=== PATIENT | male | born 1945 | race Caucasian/White ===

== ENCOUNTER 2018-04-26 09:39 | Inpatient (IN) | payer MEDICARE, BC ==
[~2018-04-26] VITALS: Ht 182.9 cm; Wt 101.8 kg
[~2018-04-26 09:39] MED LIST: ASPIRIN EC81 MG PO; ATORVASTATIN PO; CLONIDINE HCL0.2 MG PO; DIOVAN160 MG PO; DORZOLAMIDE-TIM10 ML OP; GLIPIZIDE PO; HALOG30 GM TP; LABETALOL HCL200 MG PO; LASIX40 MG PO; REFRESH OU; TRAVATAN Z5 ML OP; ULTRAM50 MG PO; [UNRECOGNIZED DRUG - OTHER] OU
[2018-04-26 10:32] LABS: BASOPHILS % 0.4 % (0.0-1.0); EOSINOPHILS % 0.3 % (0.0-6.0); HEMATOCRIT 36.2 % (38.2-49.6); HEMOGLOBIN 12.4 g/dL (14.0-18.0); LYMPHOCYTES # (AUTO) 1.8 (1.0-3.2); LYMPHOCYTES % 20.1 % (18.0-39.1); MEAN CORPUSCULAR HEMOGLOBIN 32.9 pg (28-32); MEAN CORPUSCULAR HGB CONC 34.3 g/dL (31-35); MONOCYTES % 11.4 % (4.4-11.3); NEUTROPHILS # (AUTO) 6.1 (2.1-6.9); NEUTROPHILS % 67.4 % (38.7-80.0); PLATELET COUNT 181 x10e3/uL (140-360); RED BLOOD COUNT 3.77 x10e6/uL (4.3-5.7); RED CELL DISTRIBUTION WIDTH 12.6 % (11.7-14.4)
--- NOTE | 2018-04-26 10:48 | Diagnostic Imaging Report ---
PROCEDURE: CHEST SINGLE (PORTABLE) COMPARISON: 06/20/2017. INDICATIONS: IRREGULAR HEART RATE FINDINGS: The lungs are well-inflated. No focal airspace consolidation, pleural effusion, or pneumothorax. Stable cardiomediastinal contour with tortuosity and atherosclerotic calcification of the thoracic aorta. Normal heart size and pulmonary vasculature for portable AP technique. No acute osseous abnormality. CONCLUSION: No acute cardiopulmonary abnormality. Dictated by: Mainor Foote M.D. on 04/26/2018 at 10:56 Electronically approved by: Mainor Foote M.D. on 04/26/2018 at 10:56
[2018-04-26 10:56] LABS: ALBUMIN/GLOBULIN RATIO 1.4 (0.8-2.0); ANION GAP 15.5 mmol/L (8-16); CALCIUM 9.7 mg/dL (8.4-10.2); CREATININE, SERUM 1.52 mg/dL (0.72-1.25); POTASSIUM 3.5 mmol/L (3.5-5.1)
[2018-04-26 11:02] LABS: CREATINE KINASE MB 2.9 ng/mL (0-5.0)
[2018-04-26 12:21] LABS: BILIRUBIN,URINE NEGATIVE (NEGATIVE); CLARITY,URINE CLEAR (CLEAR); COLOR,URINE YELLOW (YELLOW); KETONES,URINE NEGATIVE (NEGATIVE); LEUKOCYTE ESTERASE ,URINE NEGATIVE (NEGATIVE); NITRITE,URINE NEGATIVE (NEGATIVE); PROTEIN,URINE DIPSTICK NEGATIVE (NEGATIVE); URINE UROBILINOGEN 0.2 mg/dL (0.2 - 1)
[2018-04-26 12:34] LABS: EPITHELIAL CELLS,URINE RARE /LPF
[2018-04-26 17:35] VITALS: BP 130/60
[2018-04-26 20:00] VITALS: BP 160/71
[2018-04-26] MEDS ORDERED: GLIPIZIDE ER5 MG PO (20:05)
[2018-04-26] MEDS ORDERED: TRAVATAN Z5 ML OU (20:05)
[2018-04-26] MEDS ORDERED: ATORVASTATIN CA20 MG PO (20:05)
[2018-04-26] MEDS ORDERED: COSOPT EYE DROP10 ML OU (20:05)
[2018-04-26] MEDS ORDERED: DORZOLAMIDE OU SCH (21:00)
[2018-04-26] MEDS ORDERED: TIMOLOL OU SCH (21:00)
[2018-04-26 21:17] VITALS: BP 160/71
[2018-04-26] MEDS: DORZOLAMIDE/TIMOLOL/PF 1 EACH DROPERETTE OP SCH (21:17)
[2018-04-26] MEDS: CLONIDINE HCL 0.2 MG TAB PO SCH (21:17)
[2018-04-26] MEDS: ATORVASTATIN 20 MG TAB PO SCH (21:17)
[2018-04-26] MEDS: TRAVOPROST(OPTH) 2.5 ML BTL OP SCH (21:30)
[2018-04-27] VITALS (8 sets, daily range): BP systolic 112–175; BP diastolic 54–82
[2018-04-27 08:59] LABS: BASOPHILS # (AUTO) 0.1 (0.0-0.1); BASOPHILS % 0.5 % (0.0-1.0); EOSINOPHILS % 0.4 % (0.0-6.0); HEMATOCRIT 37.9 % (38.2-49.6); HEMOGLOBIN 12.9 g/dL (14.0-18.0); LYMPHOCYTES # (AUTO) 2.1 (1.0-3.2); LYMPHOCYTES % 19.2 % (18.0-39.1); MEAN CORPUSCULAR VOLUME 96.9 fL (81-99); MONOCYTES # (AUTO) 1.1 (0.2-0.8); MONOCYTES % 10.4 % (4.4-11.3); NEUTROPHILS # (AUTO) 7.6 (2.1-6.9); NEUTROPHILS % 69.2 % (38.7-80.0); PLATELET COUNT 174 x10e3/uL (140-360); RED BLOOD COUNT 3.91 x10e6/uL (4.3-5.7); RED CELL DISTRIBUTION WIDTH 12.5 % (11.7-14.4)
[2018-04-27] MEDS ORDERED: DORZOLAMIDE/TIMOLOL/PF 1 EACH DROPERETTE OP SCH (09:00)
--- NOTE | 2018-04-27 09:08 | Consultation ---
DATE OF CONSULTATION: April 27, 2018 CARDIOLOGY CONSULTATION REFERRING PHYSICIAN: Dr. Heard REASON FOR CONSULTATION: Arrhythmia. HPI: This is a pleasant, 72-year-old male that presented with dizziness and weakness. According to the medical record, he was found very confused, and he was brought in for evaluation. In the emergency room, he was found to have multiple PVCs, and he was admitted for further evaluation. He has a history of CVA in 2016, and he is a little slow to answer some questions. He denied any chest pain, any palpitations, any shortness of breath or diaphoresis. Troponin was negative. EKG showed normal sinus rhythm with frequent PVCs. PAST MEDICAL HISTORY: Hypertension, diabetes, sciatica of bilateral lower extremities, redness, CKD, hyperlipidemia, CVA and carotid disease. SURGICAL HISTORY: Appendectomy, back surgery, left knee surgery and lumbar facet arthroplasty. FAMILY HISTORY: Positive for hypertension and CAD. SOCIAL HISTORY: No smoking. No drinking. He lives alone. MEDICATIONS: He was on clonidine, atorvastatin, glipizide, labetalol, furosemide, valsartan, aspirin, and Travatan eye drops. ALLERGIES: HE IS NOT ALLERGIC TO ANY MEDICATION. REVIEW OF SYSTEMS: Negative, except those mentioned above. PHYSICAL EXAMINATION VITAL SIGNS: Temperature 98, heart rate 59, blood pressure 120/54, respirations 18, oxygen saturation 97% on room air. GENERAL: He is awake, alert and oriented times 2, but slow to respond. HEENT: Mucous membranes are moist. NECK: Supple. LUNGS: Bilateral clear to auscultation. CARDIOVASCULAR: S1 and S2 present with some PVCs. ABDOMEN: Soft. NEUROLOGIC: He is able to move all extremities. Due to the history of stroke, he is slow in responding to questions. EXTREMITIES: Redness, but no edema. LABS: Sodium 142, potassium 3.5, chloride 106, CO2 24, BUN 27, creatinine 1.52, glucose 89. White blood cells 9.06, hemoglobin 12.4, hematocrit 36.2, platelets 181. IMPRESSION 1. Arrhythmias. 2. Diabetes. 3. Hypertension. 4. Chronic kidney disease. 5. Hyperlipidemia. 6. History of cerebrovascular accident and carotid disease. ASSESSMENT AND PLAN 1. He is pending an echocardiogram to assess the LV and valve function. 2. We will go ahead and get bilateral carotid Doppler. 3. Will check magnesium, TSH and BNP. He is on beta haider. We will go ahead and continue the same. His heart rate is normal sinus rhythm with some PVCs, and he is asymptomatic. Potassium is 3.5. We will go ahead and give him a little more potassium. 4. Further cardiac workup pending clinical course. Thank you for this consultation. Dictated by Ry Saab NP Job#: [id number]
[2018-04-27] MEDS: CLONIDINE HCL 0.2 MG TAB PO SCH ×2 (09:09→20:53)
[2018-04-27] MEDS: VALSARTAN 160 MG TAB PO SCH (09:09)
[2018-04-27] MEDS: GLIPIZIDE 5 MG TAB ER PO SCH (09:09)
[2018-04-27] MEDS: ASPIRIN 81 MG ENTERIC COATED PO SCH (09:09)
[2018-04-27] MEDS: LABETALOL HCL 200 MG TAB PO SCH (09:10)
[2018-04-27] MEDS: FUROSEMIDE 40 MG TAB PO SCH (09:10)
[2018-04-27] MEDS ORDERED: POTASSIUM CHLORIDE 20MEQ/15ML UDC NG NR (09:15)
[2018-04-27 09:17] LABS: ALANINE AMINOTRANSFERASE 14 IU/L (0-55); ALBUMIN 3.8 g/dL (3.5-5.0); ALBUMIN/GLOBULIN RATIO 1.4 (0.8-2.0); ALKALINE PHOSPHATASE 78 IU/L (40-150); ANION GAP 15.2 mmol/L (8-16); BLOOD UREA NITROGEN 22 mg/dL (7-26); BUN/CREATININE RATIO 19 (6-25); CALCIUM 9.4 mg/dL (8.4-10.2); CARBON DIOXIDE 23 mmol/L (22-29); CHLORIDE 106 mmol/L (98-107); CREATININE, SERUM 1.13 mg/dL (0.72-1.25); EST GLOMERULAR FILTRATION RATE > 60 ML/MIN (60-); GLUCOSE 93 mg/dL (74-118); POTASSIUM 3.2 mmol/L (3.5-5.1); SODIUM 141 mmol/L (136-145)
[2018-04-27 09:20] LABS: MAGNESIUM 1.8 MG/DL (1.3-2.1)
[2018-04-27 09:46] LABS: THYROID STIMULATING HORMONE 0.43 uIU/mL (0.350-4.940)
[2018-04-27] MEDS: TRAMADOL HCL 50 MG TAB PO PRN (12:24)
[2018-04-27] MEDS: DORZOLAMIDE/TIMOLOL/PF 1 EACH DROPERETTE OP SCH ×2 (12:54→16:55)
[2018-04-27 18:18] LABS: BILIRUBIN,URINE NEGATIVE (NEGATIVE); CLARITY,URINE CLEAR (CLEAR); COLOR,URINE YELLOW (YELLOW); KETONES,URINE NEGATIVE (NEGATIVE); LEUKOCYTE ESTERASE ,URINE NEGATIVE (NEGATIVE); NITRITE,URINE NEGATIVE (NEGATIVE); PROTEIN,URINE DIPSTICK TRACE (NEGATIVE); URINE UROBILINOGEN 0.2 mg/dL (0.2 - 1)
[2018-04-27 18:29] LABS: BACTERIA,URINE MODERATE /HPF; EPITHELIAL CELLS,URINE MODERATE /LPF; MUCUS,URINE MODERATE (RARE)
[2018-04-27] MEDS: CEFTRIAXONE SOD 1 GM VIAL IV SCH (18:46)
[2018-04-27] MEDS: TRAVOPROST(OPTH) 2.5 ML BTL OP SCH (20:52)
[2018-04-27] MEDS: ATORVASTATIN 20 MG TAB PO SCH (20:53)
[2018-04-27] MEDS: ACETAMINOPHEN 325 MG TAB PO PRN (20:55)
[2018-04-28] VITALS (9 sets, daily range): BP systolic 105–167; BP diastolic 58–76
[2018-04-28] MEDS: ACETAMINOPHEN 325 MG TAB PO PRN ×2 (00:48→21:02)
[2018-04-28 05:53] LABS: BASOPHILS # (AUTO) 0.1 (0.0-0.1); BASOPHILS % 0.6 % (0.0-1.0); EOSINOPHILS # (AUTO) 0.1 (0.0-0.4); EOSINOPHILS % 0.6 % (0.0-6.0); HEMATOCRIT 34.5 % (38.2-49.6); HEMOGLOBIN 11.9 g/dL (14.0-18.0); LYMPHOCYTES # (AUTO) 2.4 (1.0-3.2); LYMPHOCYTES % 24.4 % (18.0-39.1); MEAN CORPUSCULAR HEMOGLOBIN 33.3 pg (28-32); MEAN CORPUSCULAR HGB CONC 34.5 g/dL (31-35); MEAN CORPUSCULAR VOLUME 96.6 fL (81-99); MONOCYTES # (AUTO) 1.4 (0.2-0.8); MONOCYTES % 13.5 % (4.4-11.3); NEUTROPHILS # (AUTO) 6.1 (2.1-6.9); NEUTROPHILS % 60.7 % (38.7-80.0); PLATELET COUNT 178 x10e3/uL (140-360); RED BLOOD COUNT 3.57 x10e6/uL (4.3-5.7); RED CELL DISTRIBUTION WIDTH 12.3 % (11.7-14.4)
[2018-04-28 06:13] LABS: ALANINE AMINOTRANSFERASE 16 IU/L (0-55); ALBUMIN 3.5 g/dL (3.5-5.0); ALBUMIN/GLOBULIN RATIO 1.3 (0.8-2.0); ALKALINE PHOSPHATASE 71 IU/L (40-150); ANION GAP 12.3 mmol/L (8-16); BLOOD UREA NITROGEN 18 mg/dL (7-26); BUN/CREATININE RATIO 17 (6-25); CALCIUM 9.6 mg/dL (8.4-10.2); CARBON DIOXIDE 27 mmol/L (22-29); CHLORIDE 106 mmol/L (98-107); CREATININE, SERUM 1.09 mg/dL (0.72-1.25); EST GLOMERULAR FILTRATION RATE > 60 ML/MIN (60-); GLUCOSE 87 mg/dL (74-118); POTASSIUM 3.3 mmol/L (3.5-5.1); SODIUM 142 mmol/L (136-145)
[2018-04-28] MEDS: GLIPIZIDE 5 MG TAB ER PO SCH (08:28)
[2018-04-28] MEDS: VALSARTAN 160 MG TAB PO SCH (08:28)
[2018-04-28] MEDS: CLONIDINE HCL 0.2 MG TAB PO SCH ×2 (08:28→21:02)
[2018-04-28] MEDS: ASPIRIN 81 MG ENTERIC COATED PO SCH (08:28)
[2018-04-28] MEDS: FUROSEMIDE 40 MG TAB PO SCH (08:29)
[2018-04-28] MEDS: LABETALOL HCL 200 MG TAB PO SCH (08:29)
[2018-04-28] MEDS: DORZOLAMIDE/TIMOLOL/PF 1 EACH DROPERETTE OP SCH ×2 (08:56→16:49)
[2018-04-28] MEDS ORDERED: POTASSIUM CHLORIDE 20 MEQ TAB CR PO NR (11:00)
[2018-04-28] MEDS: CEFTRIAXONE SOD 1 GM VIAL IV SCH (17:48)
[2018-04-28] MEDS: TRAVOPROST(OPTH) 2.5 ML BTL OP SCH (21:02)
[2018-04-28] MEDS: ATORVASTATIN 20 MG TAB PO SCH (21:02)
[2018-04-29] VITALS (7 sets, daily range): BP systolic 110–167; BP diastolic 55–88
[2018-04-29 05:10] LABS: BASOPHILS # (AUTO) 0.1 (0.0-0.1); BASOPHILS % 0.5 % (0.0-1.0); EOSINOPHILS # (AUTO) 0.1 (0.0-0.4); HEMATOCRIT 35.2 % (38.2-49.6); LYMPHOCYTES # (AUTO) 2.4 (1.0-3.2); LYMPHOCYTES % 23.1 % (18.0-39.1); MEAN CORPUSCULAR HEMOGLOBIN 32.9 pg (28-32); MEAN CORPUSCULAR HGB CONC 34.1 g/dL (31-35); MEAN CORPUSCULAR VOLUME 96.4 fL (81-99); MONOCYTES # (AUTO) 1.3 (0.2-0.8); MONOCYTES % 12.9 % (4.4-11.3); NEUTROPHILS # (AUTO) 6.4 (2.1-6.9); NEUTROPHILS % 62.2 % (38.7-80.0); PLATELET COUNT 169 x10e3/uL (140-360); RED BLOOD COUNT 3.65 x10e6/uL (4.3-5.7); RED CELL DISTRIBUTION WIDTH 12.2 % (11.7-14.4)
[2018-04-29 05:34] LABS: ALANINE AMINOTRANSFERASE 14 IU/L (0-55); ALBUMIN 3.5 g/dL (3.5-5.0); ALBUMIN/GLOBULIN RATIO 1.4 (0.8-2.0); ALKALINE PHOSPHATASE 71 IU/L (40-150); ANION GAP 7.1 mmol/L (8-16); BLOOD UREA NITROGEN 17 mg/dL (7-26); BUN/CREATININE RATIO 16 (6-25); CALCIUM 9.6 mg/dL (8.4-10.2); CARBON DIOXIDE 30 mmol/L (22-29); CHLORIDE 101 mmol/L (98-107); CREATININE, SERUM 1.04 mg/dL (0.72-1.25); EST GLOMERULAR FILTRATION RATE > 60 ML/MIN (60-); GLUCOSE 83 mg/dL (74-118); POTASSIUM 3.1 mmol/L (3.5-5.1); SODIUM 135 mmol/L (136-145)
[2018-04-29] MEDS ORDERED: POTASSIUM CHLORIDE 20 MEQ TAB CR PO STA (06:36)
[2018-04-29] MEDS: TRAMADOL HCL 50 MG TAB PO PRN (08:07)
[2018-04-29] MEDS: CLONIDINE HCL 0.2 MG TAB PO SCH ×2 (08:07→21:08)
[2018-04-29] MEDS: LABETALOL HCL 200 MG TAB PO SCH (08:07)
[2018-04-29] MEDS: FUROSEMIDE 40 MG TAB PO SCH (08:07)
[2018-04-29] MEDS: VALSARTAN 160 MG TAB PO SCH (08:07)
[2018-04-29] MEDS: ASPIRIN 81 MG ENTERIC COATED PO SCH (08:07)
[2018-04-29] MEDS: GLIPIZIDE 5 MG TAB ER PO SCH (08:07)
[2018-04-29] MEDS: DORZOLAMIDE/TIMOLOL/PF 1 EACH DROPERETTE OP SCH ×2 (09:02→16:29)
[2018-04-29] MEDS: CEFTRIAXONE SOD 1 GM VIAL IV SCH (17:08)
[2018-04-29] MEDS: TRAVOPROST(OPTH) 2.5 ML BTL OP SCH (21:07)
[2018-04-29] MEDS: ATORVASTATIN 20 MG TAB PO SCH (21:08)
[2018-04-30] VITALS (8 sets, daily range): BP systolic 104–161; BP diastolic 51–72
[2018-04-30 05:48] LABS: ALANINE AMINOTRANSFERASE 14 IU/L (0-55); ALBUMIN 3.3 g/dL (3.5-5.0); ALBUMIN/GLOBULIN RATIO 1.3 (0.8-2.0); ALKALINE PHOSPHATASE 69 IU/L (40-150); ANION GAP 9.8 mmol/L (8-16); BLOOD UREA NITROGEN 16 mg/dL (7-26); BUN/CREATININE RATIO 19 (6-25); CALCIUM 8.8 mg/dL (8.4-10.2); CARBON DIOXIDE 27 mmol/L (22-29); CHLORIDE 101 mmol/L (98-107); CREATININE, SERUM 0.86 mg/dL (0.72-1.25); EST GLOMERULAR FILTRATION RATE > 60 ML/MIN (60-); GLUCOSE 73 mg/dL (74-118); POTASSIUM 3.8 mmol/L (3.5-5.1); SODIUM 134 mmol/L (136-145)
[2018-04-30] MEDS ORDERED: IOPAMIDOL 370 MG/ML 200 ML INFUS..BTL INJ ONE (07:15)
[2018-04-30] MEDS ORDERED: SODIUM CHLORIDE 0.9% 50ML 100 ML ONE (07:15)
[2018-04-30] MEDS: GLIPIZIDE 5 MG TAB ER PO SCH (08:30)
[2018-04-30] MEDS: LABETALOL HCL 200 MG TAB PO SCH (09:19)
[2018-04-30] MEDS: DORZOLAMIDE/TIMOLOL/PF 1 EACH DROPERETTE OP SCH ×2 (09:19→17:44)
[2018-04-30] MEDS: CLONIDINE HCL 0.2 MG TAB PO SCH ×2 (09:19→20:05)
[2018-04-30] MEDS: ACETAMINOPHEN 325 MG TAB PO PRN (09:19)
[2018-04-30] MEDS: FUROSEMIDE 40 MG TAB PO SCH (09:19)
[2018-04-30] MEDS: VALSARTAN 160 MG TAB PO SCH (09:19)
[2018-04-30] MEDS: POTASSIUM CHLORIDE 20 MEQ TAB CR PO SCH (09:19)
[2018-04-30] MEDS: ASPIRIN 81 MG ENTERIC COATED PO SCH (09:19)
--- NOTE | 2018-04-30 10:01 | Diagnostic Imaging Report ---
Neck CTA History: Bilateral carotid stenosis Comparison studies:Neck CTA 01/12/2016 and cervical MRA 01/11/2016. Technique: Axial images were obtained from the thoracic inlet. Coronal and sagittal images reconstructed from the axial data. Additional multiplanar MIP and volume rendered 3-D images were obtained from the axial source data. Additional alternated stenosis calculations were performed on a separate workstation by the radiologist. Intravenous contrast: 100 cc of Omnipaque 300. If present, stenosis is calculated utilizing the NASCET method which calculates the degree of stenosis with reference to the normal lumen of the carotid artery distal to the stenosis. Findings: Aortic arch and major vessels: Scattered calcified plaque throughout the arch. Calcified plaque at the origin of the left subclavian artery, left common carotid artery, right brachiocephalic trunk and at the origin and proximal segment of the right subclavian artery without significant stenosis. Right carotid artery: Patent, no stenosis in the common carotid artery. Dense calcified plaque extends from the carotid bifurcation into the right carotid bulb with approximately 65-70 % stenosis at the right carotid bulb/ICA origin. Blooming artifact from dense calcium at the bulbs somewhat limited evaluation of true luminal diameter on both the current and prior exams. Mildly tortuous right ICA with mild stenotic plaque in the distal right ICA segment. Left carotid artery: Patent, no stenosis in the common carotid artery. Dense calcified plaque at the cervical bifurcation extends into the right carotid bulb and ICA origin where there is approximately 60-65% stenosis. Blooming artifact from dense calcium at the bulb somewhat limited evaluation of true luminal diameter on both the current and prior exam. Mildly tortuous cervical internal carotid artery without tandem stenosis. Left vertebral artery: Patent, no abnormalities. Right vertebral artery: Occluded in the V1 and proximal V2 segments with reconstituted flow at the right C4 transverse foramen. The nondominant right vertebral artery is diffusely smaller in caliber compared to the contralateral left vertebral artery. Included intracranial circulation: Calcified atherosclerosis throughout the left petrous, bilateral cavernous and bilateral paraophthalmic segments of the internal carotid arteries without significant stenosis. The bilateral M1 and proximal M2 MCA segments and A1 and proximal A2 MARCE segments are patent. Calcified atherosclerosis in the intradural V4 segments of both vertebral arteries with mild stenosis on the left. The nondominant right intradural V4 segment is poorly visualized with long segment narrowing proximally, with probable high-grade stenosis near its dural insertion and is otherwise patent distally. Basilar artery is patent and there are bilateral prominent posterior communicating arteries with persistent bilateral -type COAL HIKER origins. Cervical spine: Moderately degenerated disks from C4 to T2 with disc osteophyte complexes which indent the thecal sac and result in moderate canal stenosis from C4 to C7. Multilevel uncovertebral and facet arthrosis result in multilevel foraminal stenosis; moderate left at C2-C3 and moderate bilaterally from C4 to T1. Incidental findings: Bilateral intraocular lens replacements. Heterogeneous multinodular thyroid gland. Multiple dental caries with multifocal periodontal disease. IMPRESSION: 1. Moderate calcified atherosclerosis with plaques as described. 2. Approximate 65-70% stenosis at the right carotid bulb/ICA origin. 3. Approximately 60-65% stenosis at the left carotid bulb/ICA origin. 4. Nondominant right vertebral artery occluded at its origin and proximal V2 segments with unchanged severe long segmental narrowing in its proximal intradural V4 segment. 5. No significant changes from the previous CTA of 01/12/2016. Signed by: Dr. Mainor Carrillo M.D. on 04/30/2018 9:58 AM
[2018-04-30] MEDS: CEFTRIAXONE SOD 1 GM VIAL IV SCH (17:44)
[2018-04-30] MEDS: TRAVOPROST(OPTH) 2.5 ML BTL OP SCH (20:05)
[2018-04-30] MEDS: ATORVASTATIN 20 MG TAB PO SCH (20:05)
--- NOTE | 2018-04-30 21:07 | Consultation ---
DATE OF CONSULTATION: April 30, 2018 NEUROLOGY CONSULT NOTE HISTORY OF PRESENT ILLNESS: Mr. Thompson is a 72-year-old [id number] man with past medical history significant for hypertension, hyperlipidemia, diabetes mellitus type 2, and prior stroke with unknown residual deficits admitted to [facility] on April 26, 2018 with dizziness and weakness. Unfortunately, the patient is unable to provide his medical history. Mr. Santana Lind, who holds his durable and medical lopez of straddle bug operator, is unavailable at the time of this dictation. As stated above, Mr. Thompson presented to the Emergency Center at [facility] on April 26, 2018 via ambulance with dizziness which is further described as lightheadedness and generalized weakness. The patient was accompanied by his friend, Mr. Lind, who reported the patient had an abnormal electrocardiogram the week prior. While in route in the ambulance, and in the Emergency Center the patient was noted to have multiple premature ventricular contractions. Therefore, he was admitted to [facility] as an inpatient for further evaluation and treatment of cardiac arrhythmia. While in the hospital, the patient was noted by medical staff to be confused. A neurology consultation was requested for further evaluation. Mr. Thompson endorses confusion/memory loss. He reports having a stroke some time ago for which he underwent a prolonged hospitalization. Mr. Thompson reports there are portions of the this hospitalization he cannot recall. When asked if he has other concerns regarding memory loss or other cognitive deficits, the patient responds in the negative. Mr. Thompson lives alone in a house. He reports being independent in his activities of daily, living-bathing, grooming, dressing, and toileting. He does not report forgetting the names of family members or close friends. He does not report misplacing items. He does not report repetition of questions or stories. However, with each question asked, Mr. Thompson recommends speaking to his friends, Mr. Santana Lind, who can "answer all of these questions better than I can." As stated above, Mr. Thompson lives alone in a house. A home health provider comes to his home 5 days per week to perform chores, prepare meals, and administer the patient's medications. When asked who performs these tasks on the weekends, patient replies "I do not know." Mr. Thompson no longer drives. He reports being told 4 weeks ago to stop driving by his silk spreader due to "an eye problem." The patient's friend, Mr. Santana Lind, manages the patient's financial affairs, runs errands for him, schedules and takes him to appointments, etc. Once again, Mr. Thompson recommends speaking to Mr. Lind for answers to all of these questions. As stated above, Mr. Santana Lind carries the patient's durable and medical lopez of straddle bug operator. At present, he is not at the patient's bedside. He is not reachable by telephone. REVIEW OF SYSTEMS: Constipation, memory impairment, generalized weakness, impairment of balance and gait, dizziness which is further described as lightheadedness. Otherwise the 12 point review of systems is negative. PAST MEDICAL HISTORY: Hypertension, hyperlipidemia, diabetes mellitus type 2, prior stroke with unknown residual deficits, and bilateral carotid artery atherosclerosis. PAST SURGICAL HISTORY: Appendectomy, lumbar spine surgery, left knee surgery. PAST HOSPITALIZATIONS: Surgeries/procedures as listed. FAMILY MEDICAL HISTORY: Hypertension and coronary artery disease. SOCIAL HISTORY: Mr. Thompson is . He is retired. There is no reported current or prior tobacco, alcohol, or recreational drug use. HOME MEDICATIONS: Please see the list of home medications available in the electronic medical record. ALLERGIES: NO KNOWN DRUG ALLERGIES. No known food allergies. No known allergies to latex. No known allergies to iodine or other contrast materials. PHYSICAL EXAMINATION: VITAL SIGNS: Height 72 inches, weight 226 pounds. BMI 30.7 kg per meter squared. Blood pressure 126/63 mmHg. Pulse 58 beats per minute. Respiratory rate 19 breaths per minute. Oxygen saturation 94% on room air. GENERAL: The patient is awake and alert. Does not appear distressed. Overweight. HEENT: Normocephalic and atraumatic. Pupils appear surgical. Moist mucous membranes. NECK: Supple. No appreciable thyromegaly. No appreciable carotid bruits. CARDIOVASCULAR: S1 and S2. Regular rate and rhythm. No rubs or gallops. A low-grade systolic ejection murmur is appreciated. RESPIRATORY: Clear to auscultation bilaterally. No wheezes, rhonchi or rales. EXTREMITIES: The skin is warm and dry. No clubbing, cyanosis or edema. The posterior tibial and dorsalis pedis pulses are 1+ and symmetric. SKIN: Venous stasis ulcerations are present over the feet and distal lower extremities. NEUROLOGIC: Memory/attention: The patient is awake and alert. Oriented to person, place (hospital, city, county, state), minimally to time (year only), but not to situation. CRANIAL NERVES: Cranial nerve I: Not tested. Cranial nerves II, III, IV, : Pupils appears surgical. Extraocular movements intact. No nystagmus. Cranial nerve V: Sensation to light touch and pinprick is intact in the bilateral V1 through V3 distributions. Strength of the temporalis and masseter muscles is within normal limits. Cranial nerve VII: The face is symmetric, as are all facial movements. Strength is within normal limits. Cranial nerve VIII: Hearing is diminished to finger rub bilaterally. Cranial nerve IX and X: The soft palate elevates equally and symmetrically. Cranial nerve XI: Normal strength of the bilateral sternocleidomastoid and trapezius muscles. Cranial nerve XII: The tongue protrudes midline and moves symmetrically from side to side. STRENGTH: Bulk is diminished throughout, and strength is 5/5 in the bilateral deltoids, biceps, triceps, wrist flexors and extensors, finger flexors and extensors, intrinsic hand muscles, hip flexors, knee flexors and extensors, ankle dorsiflexion and plantar flexion, and intrinsic foot muscles except as follows. Right hip flexors 4/5, right knee flexors 4/5, right knee extensors 4+/5, right ankle dorsal flexion 4-/5, right ankle plantar flexion 4/5, and right intrinsic foot muscles 4/5. Tone is normal. DTRs: Deep tendon reflexes are 2+ at the left triceps, biceps, brachioradialis. Deep tendon reflexes are trace at the right triceps, biceps and brachial radialis. Deep tendon reflexes are absent and symmetric at the Patellas, and Achilles. Plantar responses are mute bilaterally. SENSATION: Intact to light touch and pinprick in both arms and both legs. CEREBELLAR: Cdxnnn-vcvj-jbpvat and heel-phillips movements are intact without dysmetria or other impairment. GAIT: Deferred. SPEECH: Spontaneous speech is normal without appreciable dysarthria or aphasia. Repetition is intact. INVOLUNTARY MOVEMENTS: None. PRONATOR DRIFT: None. LABORATORY DATA: Patient's most recent comprehensive metabolic panel is significant for a mildly decreased sodium level 134, a low serum glucose level is 73, mildly decreased total protein level 5.9, and mildly decreased albumin level 3.3. CBC with differential and platelets reveals a white blood cell count 10.27 with 62.2% neutrophils, 23.1% lymphocytes, 12.9% monocytes, 1.0% eosinophils, and 0.5% basophils. The hemoglobin and hematocrit are 12.0 and 35.2, respectively. The platelet count is 165,000. A urinalysis collected on April 27, 2018 reveals trace protein, moderate urine bacteria, 2 to 5 hyaline casts, and moderate mucus. A urine culture collected on April 27, 2018 grew mixed vinicio. DIAGNOSTIC STUDIES: Chest x-ray done 04/26/2018: No acute cardiopulmonary abnormality. Echocardiogram 04/26/2018: Ejection fraction 60% to 65%. Concentric left ventricular hypertrophy. Trace mitral regurgitation, and pulmonic insufficiency. Electrocardiogram 04/27/2018: Sinus rhythm at 68 beats per minute with premature ventricular contractions. Left axis deviation. Incomplete right, branch block. CTA of the neck 04/30/2018: Moderate calcified atherosclerosis with plaques as described. Approximate 65% to 70% stenosis of the right carotid bulb/ICA origin. Approximately 60% to 65% stenosis of the left carotid bulb/ICA origin. Nondominant right vertebral artery occluded at its origin and proximal V2 segments with unchanged severe long segmental narrowing in its proximal intradural V4 segment. No significant changes from the previous CTA of 01/12/2016. ASSESSMENT AND PLAN: Mr. Thompson is a 72-year-old [id number] man with multiple vascular risk factors as detailed admitted to [facility] on April 26, 2018 with dizziness which was further described as lightheadedness and generalized weakness with multiple PVCs seen on electrocardiogram and cardiac monitoring. During his hospitalization, Mr. Thompson was noted to be confused. A neurology consultation was requested for further evaluation. The patient's neurological examination is significant for disorientation to time and situation, weakness of the right lower extremity, relatively brisk reflexes of the left arm. Patient's laboratory data and other diagnostic studies have been reviewed and are documented above. In my opinion, Mr. Thompson has dementia, probably secondary to vascular disease. However, it is possible the patient has Alzheimer's disease as this is the most common cause of memory loss in the [place]. 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 Recommendations for further evaluation and treatment are as follows: 1. Vitamin B12 level, and rapid plasma reagin will be ordered as part of a dementia workup. 2. CT of the brain without contrast will be ordered to evaluate for patterns of volume loss as well as the extent of vascular disease in the brain. 3. Consider treatment with Donepezil 5 mg by mouth at bedtime daily. This medication is approved for the treatment of Alzheimer's disease. There is an anecdotal evidence of possible mild improvement in vascular dementia as well. Treatment with this medication will be discussed with the patient's medical power of straddle bug operator, .Santana Lind, when he is available. 4. Defer treatment of the remaining medical comorbidities to the primary and other services following the patient. Thank you for this consultation. I will continue to follow patient while he remains in the hospital. Time spent: 70 minutes. Job#: [id number] MTDD
--- NOTE | 2018-04-30 22:12 | Diagnostic Imaging Report ---
Examination: CT head without contrast Clinical Indication: Memory loss; dementia. Technique: Transaxial noncontrast images from the skull base through the vertex were obtained. Sagittal and coronal reformatted images were done. Dose modulation, iterative reconstruction, and/or weight based adjustment of the mA/kV was utilized to reduce the radiation dose to as low as reasonably achievable. Comparison: Head CT dated 06/20/2017. Findings: Scalp: No abnormalities. Bones: Intact. No fractures. No blastic or lytic lesions. Brain sulci: Mild generalized volume loss for patient's age which also includes the bilateral hippocampi, concerning for Alzheimer's. Ventricles: The ventricular size is out of proportion with respect to cerebral convexity sulci, concerning for a communicating type of hydrocephalus, such as normal pressure hydrocephalus. Extra-axial space: No abnormalities. Parenchyma: There are mild confluent areas of low-attenuation within subcortical and periventricular white matter, nonspecific, but could represent microvascular ischemic disease. Chronic lacunar infarcts are again demonstrated in the bilateral thalami. No masses, hemorrhage, or acute or chronic cortical based vascular insults. Suprasellar region: No abnormalities. Craniocervical junction: The foramen magnum is patent. No Chiari one malformation. Incidental findings: Atherosclerotic calcification of the cavernous and supraclinoid internal carotid arteries. Impression: 1. No acute intracranial finding when compared to prior head CT dated 06/20/2017. 2. Unchanged mild chronic microvascular ischemic change. 3. Unchanged findings as described can be related to normal pressure hydrocephalus. 4. Unchanged mild volume loss which could be related to Alzheimer's, as above. 5. Unchanged chronic lacunar infarcts in the bilateral thalami. Signed by: Dr. Shanita Hall M.D. on 04/30/2018 10:08 PM
[2018-05-01] VITALS (7 sets, daily range): BP systolic 135–172; BP diastolic 64–93
[2018-05-01] MEDS: VALSARTAN 160 MG TAB PO SCH (09:25)
[2018-05-01] MEDS: ASPIRIN 81 MG ENTERIC COATED PO SCH (09:25)
[2018-05-01] MEDS: DORZOLAMIDE/TIMOLOL/PF 1 EACH DROPERETTE OP SCH ×2 (09:25→18:00)
[2018-05-01] MEDS: CLONIDINE HCL 0.2 MG TAB PO SCH ×2 (09:25→20:45)
[2018-05-01] MEDS: FUROSEMIDE 40 MG TAB PO SCH (09:25)
[2018-05-01] MEDS: GLIPIZIDE 5 MG TAB ER PO SCH (09:25)
[2018-05-01] MEDS: POTASSIUM CHLORIDE 20 MEQ TAB CR PO SCH (09:25)
[2018-05-01] MEDS: LABETALOL HCL 200 MG TAB PO SCH (09:25)
[2018-05-01] MEDS: ACETAMINOPHEN 325 MG TAB PO PRN (11:16)
[2018-05-01] MEDS: CEFTRIAXONE SOD 1 GM VIAL IV SCH (18:00)
[2018-05-01] MEDS: TRAVOPROST(OPTH) 2.5 ML BTL OP SCH (20:35)
[2018-05-01] MEDS: ATORVASTATIN 20 MG TAB PO SCH (20:45)
[2018-05-01] MEDS ORDERED: DONEPEZIL HCL 5 MG TAB PO SCH (21:00)
[2018-05-02] VITALS: BP 170/79
[2018-05-02 04:00] VITALS: BP 152/92
[2018-05-02 06:14] LABS: BASOPHILS # (AUTO) 0.1 (0.0-0.1); BASOPHILS % 0.5 % (0.0-1.0); EOSINOPHILS # (AUTO) 0.5 (0.0-0.4); EOSINOPHILS % 4.6 % (0.0-6.0); HEMATOCRIT 34.5 % (38.2-49.6); HEMOGLOBIN 11.8 g/dL (14.0-18.0); MEAN CORPUSCULAR HEMOGLOBIN 32.6 pg (28-32); MEAN CORPUSCULAR HGB CONC 34.2 g/dL (31-35); MEAN CORPUSCULAR VOLUME 95.3 fL (81-99); MONOCYTES # (AUTO) 1.1 (0.2-0.8); MONOCYTES % 10.6 % (4.4-11.3); NEUTROPHILS # (AUTO) 6.7 (2.1-6.9); NEUTROPHILS % 64.9 % (38.7-80.0); PLATELET COUNT 187 x10e3/uL (140-360); RED BLOOD COUNT 3.62 x10e6/uL (4.3-5.7); RED CELL DISTRIBUTION WIDTH 12.4 % (11.7-14.4)
[2018-05-02 06:35] LABS: ALANINE AMINOTRANSFERASE 12 IU/L (0-55); ALBUMIN 3.4 g/dL (3.5-5.0); ALBUMIN/GLOBULIN RATIO 1.3 (0.8-2.0); ALKALINE PHOSPHATASE 71 IU/L (40-150); ANION GAP 15.1 mmol/L (8-16); BLOOD UREA NITROGEN 14 mg/dL (7-26); BUN/CREATININE RATIO 18 (6-25); CALCIUM 9.2 mg/dL (8.4-10.2); CARBON DIOXIDE 23 mmol/L (22-29); CHLORIDE 105 mmol/L (98-107); CREATININE, SERUM 0.79 mg/dL (0.72-1.25); EST GLOMERULAR FILTRATION RATE > 60 ML/MIN (60-); GLUCOSE 135 mg/dL (74-118); POTASSIUM 4.1 mmol/L (3.5-5.1); SODIUM 139 mmol/L (136-145)
[2018-05-02 07:35] VITALS: BP 163/74
[2018-05-02] MEDS: GLIPIZIDE 5 MG TAB ER PO SCH (08:39)
[2018-05-02] MEDS: VALSARTAN 160 MG TAB PO SCH (08:39)
[2018-05-02] MEDS: FUROSEMIDE 40 MG TAB PO SCH (08:39)
[2018-05-02] MEDS: CLONIDINE HCL 0.2 MG TAB PO SCH (08:39)
[2018-05-02] MEDS: ASPIRIN 81 MG ENTERIC COATED PO SCH (08:39)
[2018-05-02] MEDS: POTASSIUM CHLORIDE 20 MEQ TAB CR PO SCH (08:39)
[2018-05-02] MEDS: DORZOLAMIDE/TIMOLOL/PF 1 EACH DROPERETTE OP SCH ×2 (08:39→15:49)
[2018-05-02] MEDS: LABETALOL HCL 200 MG TAB PO SCH (08:40)
[2018-05-02 11:30] VITALS: BP 146/70
[2018-05-02] MEDS ORDERED: MAGNESIUM HYDROXIDE 30 ML UDC PO PRN (12:00)
[2018-05-02] MEDS: TRAMADOL HCL 50 MG TAB PO PRN (15:54)
[2018-05-02 16:30] VITALS: BP 124/70
--- OUTSIDE RECORDS SUMMARY | 2018-05-08 10:36 | XMS REPORT ---
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 Allergies, Adverse Reactions, Alerts This patient has no known allergies or adverse reactions. Medications This patient has no known medications. Results Test Description Test Time Test Comments Text Results Atomic Results Result Comments CT BRAIN WO 2018-04-30 22:02:00 [place] [address] Patient Name: LUIS PATTERSON MR #: [id number] : 1945 Age/Sex: 72/M Req #: [id number] Adm Physician: PEG OSHEA MD Ordered by: KAMI FLOWERS M.D. Report #: [id number] Location: MED/SURG Room/Bed: [facility] Procedure: [id number] CT/CT BRAIN WO Exam Date: 04/30/18 Exam Time: 1851 REPORT STATUS: Signed Examination: CT head without contrast Clinical Indication: Memory loss; dementia. Technique: Transaxial noncontrast images from the skull base through the vertex were obtained. Sagittal and coronal reformatted images were done. Dose modulation, iterative reconstruction, and/or weight based adjustment of the mA/kV was utilized to reduce the radiation dose to as low as reasonably achievable. Comparison: Head CT dated 06/20/2017. Findings: Scalp: No abnormalities. Bones: Intact. No fractures. No blastic or lytic lesions. Brain sulci: Mild generalized volume loss for patient's age which also includes the bilateral hippocampi, concerning for Alzheimer's. Ventricles: The ventricular size is out of proportion with respect to cerebral convexity sulci, concerning for a communicating type of hydrocephalus, such as normal pressure hydrocephalus. Extra-axial space: No abnormalities. Parenchyma: There are mild confluent areas of low-attenuation within subcortical and periventricular white matter, nonspecific, but could represent microvascular ischemic disease. Chronic lacunar infarcts are again demonstrated in the bilateral thalami. No masses, hemorrhage, or acute or chronic cortical based vascular insults. Suprasellar region: No abnormalities. Craniocervical junction: The foramen magnum is patent. No Chiari one malformation. Incidental findings: Atherosclerotic calcification of the cavernous and supraclinoid internal carotid arteries. Impression: 1. No acute intracranial finding when compared to prior head CT dated 06/20/2017. 2. Unchanged mild chronic microvascular ischemic change. 3. Unchanged findings as described can be related to normal pressure hydrocephalus. 4. Unchanged mild volume loss which could be related to Alzheimer's, as above. 5. Unchanged chronic lacunar infarcts in the bilateral thalami. Signed by: Dr. Shanita Hall M.D. on 04/30/2018 10:08 PM Dictated By: SHANITA HANSEN MD 07 Transcribed By: FARAZ on 04/30/182207 COPY TO: KAMI FLOWERS MD CTA NECK 2018-04-30 09:11:00 [place] [address] Patient Name: LUIS PATTERSON MR #: [id number] : 1945 Age/Sex: 72/M Req #: [id number] Adm Physician: PEG OSHEA MD Ordered by: PEG OSHEA MD Report #: [id number] Location: MED/SURG Room/Bed: [facility] Procedure: [id number] CT/CTA NECK Exam Date: 04/30/18 Exam Time: 0530 REPORT STATUS: Signed Neck CTA History: Bilateral carotid stenosis Comparison studies:Neck CTA 01/12/2016 and cervical MRA 01/11/2016. Technique: Axial images were obtained from the thoracic inlet. Coronal and sagittal images reconstructed from the axial data. Additional multiplanar MIP and volume rendered 3-D images were obtained from the axial source data. Additional alternated stenosis calculations were performed on a separate workstation by the radiologist. Intravenous contrast: 100 cc of Omnipaque 300. If present, stenosis is calculated utilizing the NASCET method which calculates the degree of stenosis with reference to the normal lumen of the carotid artery distal to the stenosis. Findings: Aortic arch and major vessels: Scattered calcified plaque throughout the arch. Calcified plaque at the origin of the left subclavian artery, left common carotid artery, right brachiocephalic trunk and at the origin and proximal segment of the right subclavian artery without significant stenosis. Right carotid artery: Patent, no stenosis in the common carotid artery. Dense calcified plaque extends from the carotid bifurcation into the right carotid bulb with approximately 65-70 % stenosis at the right carotid bulb/ICA origin. Blooming artifact from dense calcium at the bulbs somewhat limited evaluation of true luminal diameter on both the current and prior exams. Mildly tortuous right ICA with mild stenotic plaque in the distal right ICA segment. Left carotid artery: Patent, no stenosis in the common carotid artery. Dense calcified plaque at the cervical bifurcation extends into the right carotid bulb and ICA origin where there is approximately 60-65% stenosis. Blooming artifact from dense calcium at the bulb somewhat limited evaluation of true luminal diameter on both the current and prior exam. Mildly tortuous cervical internal carotid artery without tandem stenosis. Left vertebral artery: Patent, no abnormalities. Right vertebral artery: Occluded in the V1 and proximal V2 segments with reconstituted flow at the right C4 transverse foramen. The nondominant right vertebral artery is diffusely smaller in caliber compared to the contralateral left vertebral artery. Included intracranial circulation: Calcified atherosclerosis throughout the left petrous, bilateral cavernous and bilateral paraophthalmic segments of the internal carotid arteries without significant stenosis. The bilateral M1 and proximal M2 MCA segments and A1 and proximal A2 MARCE segments are patent. Calcified atherosclerosis in the intradural V4 segments of both vertebral arteries with mild stenosis on the left. The nondominant right intradural V4 segment is poorly visualized with long segment narrowing proximally, with probable high-grade stenosis near its dural insertion and is otherwise patent distally. Basilar artery is patent and there are bilateral prominent posterior communicating arteries with persistent bilateral -type PRECISION GRINDER origins. Cervical spine: Moderately degenerated disks from C4 to T2 with disc osteophyte complexes which indent the thecal sac and result in moderate canal stenosis from C4 to C7. Multilevel uncovertebral and facet arthrosis result in multilevel foraminal stenosis; moderate left at C2-C3 and moderate bilaterally from C4 to T1. Incidental findings: Bilateral intraocular lens re placements. Heterogeneous multinodular thyroid gland. Multiple dental caries with multifocal periodontal disease. IMPRESSION: 1. Moderate calcified atherosclerosis with plaques as described. 2. Approximate 65-70% stenosis at the right carotid bulb/ICA origin. 3. Approximately 60-65% stenosis at the left carotid bulb/ICA origin. 4. Nondominant right vertebral artery occluded at its origin and proximal V2 segments with unchanged severe long segmental narrowing in its proximal intradural V4 segment. 5. No significant changes from the previous CTA of 01/12/2016. Signed by: Dr. Ml Carrillo M.D. on 04/30/2018 9:58 AM Dictated By: ML CARRILLO MD 7 Transcribed By: FARAZ on 04/30/18957 COPY TO: PEG OSHEA MD CHEST SINGLE (PORTABLE) 2018-04-26 10:56:00 [place] [address] Patient Name: LUIS PATTERSON MR #: [id number] : 1945 Age/Sex: 72/M Req #: [id number] Adm Physician: Ordered by: ELENA KAT MD Report #: [id number] Location: ER Room/Bed: Procedure: [id number] DX/CHEST SINGLE (PORTABLE) Exam Date: 04/26/18 Exam Time: 1010 REPORT STATUS: Signed PROCEDURE: CHEST SINGLE (PORTABLE) COMPARISON: 06/20/2017. INDICATIONS: IRREGULAR HEART RATE FINDINGS: The lungs are well- inflated. No focal airspace consolidation, pleural effusion, or pneumothorax. Stable cardiomediastinal contour with tortuosity and atherosclerotic calcification of the thoracic aorta. Normal heart size and pulmonary vasculature for portable AP technique. No acute osseous abnormality. CONCLUSION: No acute cardiopulmonary abnormality. Dictated by: Ml Stanley M.D. on 04/26/2018 at 10:56 Electronically approved by: Ml Stanley M.D. on 04/26/2018 at 10:56 Dictated By: ML STANLEY MD 1056 Transcribed By: SYED on 04/26/18 1056 COPY TO: ELENA KAT MD CHEST SINGLE (PORTABLE) [place] [address] Patient Name: LUIS PATTERSON MR #: [id number] : 1945 Age/Sex: 72/M Req #: [id number] Adm Physician: Ordered by: NAOMI CORREIA MD Report #: [id number] Location: ER Room/Bed: Procedure: [id number] DX/CHEST SINGLE (PORTABLE) Exam Date: Exam Time: REPORT STATUS: Signed Single view chest June 20, 2017 Clinical history: Dizziness Technique: AP view chest Comparison: January 11, 2016 Findings: The lungs are clear and symmetrically inflated. No pleural effusions. Cardiac size is normal for technique. Pulmonary vasculature is normal. The skeleton is grossly intact. Impression: No acute abnormality or interval change from December 2015.. This report was generated with voice-recognition technology. Errors in service bar cashier can occur. Please interpret accordingly and contact a radiologist if there are any questions regarding the report. Signed by: Dr. Crystal Tay M.D. on 06/20/2017 8:00 PM Dictated By: CRYSTAL TAY MD 99 Transcribed By: FARAZ on 06/20/171999 COPY TO: NAOMI CHRISTENSEN MD CT BRAIN WO [place] [address] Patient Name: LUIS PATTERSON MR #: [id number] : 1945 Age/Sex: 72/M Req #: [id number] Adm Physician: Ordered by: NAOMI CORREIA MD Report #: [id number] Location: ER Room/Bed: Procedure: [id number] CT/CT BRAIN WO Exam Date: Exam Time: REPORT STATUS: Signed EXAMINATION: Head CT without contrast. HISTORY:Dizziness, slurred speech and weakness. COMPARISON:CT and MRI brain from 01/11/2016, CTA head and neck from 01/12/2016. TECHNIQUE: Multidetector axial images were obtained from the foramen magnum to the vertex without contrast. The images were reconstructed using brain and bone algorithms. Thin section brain images were reformatted into coronal and sagittal planes. Intravenous contrast: None IMAGE QUALITY: Acceptable. FINDINGS: Skull/scalp: No abnormality. Parenchyma: Nonspecific bilateral frontoparietal patchy white matter hypodensity are likely related to small vessel ischemic changes. Old lacunar infarct in bilateral thalami. Old lacunar infarct in right cerebellar hemisphere seen in prior MRI brain is not well visualized in current study. No acute hemorrhage, mass or acute major vascular territorial infarct. Arteries: Atherosclerotic calcification in bilateral carotid siphon and V4 segment of right vertebral artery. Dural sinuses: No abnormal density suggestive of thrombosis. Ventricles: Unchanged mild compensated dilatation due to volume loss. No hydrocephalus. Extra-axial spaces: No abnormal density. Brain volume: Mild generalized age-related cerebral volume loss. Craniocervical junction: No mass, Chiari malformation, or basilar invagination. Sella: No mass. Paranasal/mastoid sinuses: Imaged portions unremarkable. IMPRESSION: No acute intracranial abnormality, particularly no acute hemorrhage, mass or acute major vascular territorial infarct. Chronic findings: 1. Chronic lacunar infarct in bilateral thalami. 2. Mild to moderate supratentorial white matter microvascular ischemic changes. 3. Mild generalized age-related cerebral volume loss. Signed by: Dr. Sarah Carvajal M.D. on 06/20/2017 8:16 PM Dictated By: SARAH CARVAJAL MD 15 Transcribed By: FARAZ on 06/20/172015 COPY TO: NAOMI CORREIA MD
--- NOTE | 2018-07-07 19:44 | Discharge Summary ---
DISCHARGE DIAGNOSES 1. Weakness. 2. Arrhythmias. 3. Diabetes. 4. Hyperlipidemia. 5. Chronic kidney disease stage 3. HISTORY OF PRESENT ILLNESS AND HOSPITAL COURSE: See hospital chart for full details. Patient is a 72-year-old gentleman, presented with overall weakness who was found to have frequent PVCs. So, he was brought in and seen by Dr. Nicolas for cardiology. Patient was having fever and confusion, which was unusual for the patient, so he was seen by neurology. Echo showed an EF of 60%. Carotid Dopplers appeared to show significant carotid stenosis. CT scan showed possible NPH, which Dr. Red ruled out. Further carotid disease is felt to be medically managed and since patient was still overall weak, we thought he will be better served by going to rehab place, so patient was transferred to rehab. Please see hospital chart for full details. PEG OSHEA MD Job#: [id number] CHRIS
== END 2018-05-02 18:20 | DRG 310 ==
LOC: ER 09:44 → ERHOLD 11:18 → MED/SURG 17:02 → OBSVTOIN 04-29 07:39 → UNDODISIN 05-01 14:50
PROVIDERS: ADMIT Internal Medicine; ATTEND Internal Medicine
DX: I49.3 Ventricular premature depolarization (principal); E11.22 Type 2 diabetes mellitus with diabetic chronic kidney disease; I12.9 Hypertensive chronic kidney disease with stage 1 through stage 4 chronic kidney disease, or unspecified chronic kidney disease; N18.3 Chronic kidney disease, stage 3 (moderate); E78.00 Pure hypercholesterolemia, unspecified; Z82.49 Family history of ischemic heart disease and other diseases of the circulatory system; Z86.73 Personal history of transient ischemic attack (TIA), and cerebral infarction without residual deficits; Z79.84 Long term (current) use of oral hypoglycemic drugs; E78.5 Hyperlipidemia, unspecified; F01.50 Vascular dementia, unspecified severity, without behavioral disturbance, psychotic disturbance, mood disturbance, and anxiety; G30.9 Alzheimer's disease, unspecified; F02.80 Dementia in other diseases classified elsewhere, unspecified severity, without behavioral disturbance, psychotic disturbance, mood disturbance, and anxiety; D64.9 Anemia, unspecified; R50.9 Fever, unspecified; I65.29 Occlusion and stenosis of unspecified carotid artery; E87.6 Hypokalemia
CPT/HCPCS: 36415; 70450; 70498; 71045; 80053; 81001; 82140; 82550; 82553; 82607; 82948; 83605; 83735; 83880; 84443; 84484; 85025; 86592; 87086; 93005; 93306; 93880; 97139; 99285; G0378; J0696; Q9967